=== PATIENT | female | born 2000 | race Caucasian/White ===

== ENCOUNTER 2024-05-28 12:25 | Emergency (ER) | payer OTHER ==
[2024-05-28 12:40] VITALS: PULSE 94; RESP 15; TEMP 98.3; O2SAT 100
[2024-05-28] MEDS ORDERED: NAPROXEN250 MG PO (12:59)
== END 2024-05-28 14:05 | disposition home or self-care (01) ==
LOC: ER 12:36
DX: S60.312A Abrasion of left thumb, initial encounter (principal); V43.52XA Car driver injured in collision with other type car in traffic accident, initial encounter; Y92.488 Other paved roadways as the place of occurrence of the external cause
CPT/HCPCS: 99283